=== PATIENT | male | born 1950 | race Caucasian/White ===

== ENCOUNTER 2025-05-29 18:58 | Emergency (ER) | payer MEDICARE, SELFPAY ==
[2025-05-29 18:59] VITALS: BMI 26.4
[2025-05-29 19:11] VITALS: BP 165/77; PULSE 68; RESP 18; TEMP 36.9; O2SAT 99
--- NOTE | 2025-05-29 19:17 | XR_ITS ---
Examination: CT chest, without intravenous contrast. CT abdomen, without intravenous contrast. CT pelvis, without intravenous contrast. 2-D sagittal and coronal reconstructions. 3-D reconstructions. Date and time of exam:May 29, 2025, 1939 hours INDICATIONS: Ground-level fall today with injury to the chest and abdomen, chest pain abdomen pain CTDI vol (mgy) 7.74 DLP (MGycm)653 Technique: Multiple CT images, 3.0 mm slice thickness, obtained chest, abdomen, pelvis, with the high-resolution 64 slice scanner.. Sagittal and coronal 2-D reconstructions are obtained. 3-D reconstructions Low dose protocols were performed. One or more of the following dose reduction techniques were used; automated exposure control, adjustment of the mA and/or KV according to patient size, use of iterative reconstruction technique. Findings: 29 mm calcified left thyroid nodule Thoracic aorta pulmonary arteries appear intact on this noncontrast study Heavy calcification left anterior descending coronary artery. No hemopericardium. No pneumothorax pulmonary contusion or hemothorax The manubrium, the body sternum intact No thoracic or lumbar or sacral fracture depicted Ribs appear intact 12 mm liver cyst. No focal liver splenic or renal laceration 3.7 cm lateral right renal cyst Abdominal aorta intact, no free blood in the abdomen Negative for pneumoperitoneum Abundant stool in the rectosigmoid Urinary bladder intact Bones of the pelvis including anterior rami and hips appear intact IMPRESSION: 29 mm calcified left thyroid nodule. Thoracic aorta pulmonary arteries intact No pneumothorax, pulmonary contusion or hemothorax. No abdominal parenchymal laceration. Abdominal aorta intact No free blood in the abdomen or pelvis. Osseous structures appear intact
--- NOTE | 2025-05-29 19:17 | XR_ITS ---
Examination: CT brain head without contrast. 2-D sagittal coronal reconstructions Date and time of exam:July 29, 2025 1933 hours INDICATIONS: Round level fall today with into the head, head pain CTDI: vol (mGy):50.7 DLP: (mGycm):1093 Technique: Multiple CT axial sections of the brain have been obtained, 5 mm slice thickness. Contrast has not been administered. 2-D sagittal, coronal reconstructions have been obtained Low dose protocols were performed. One or more of the following dose reduction techniques were used; automated exposure control, adjustment of the mA and/or KV according to patient size, use of iterative reconstruction technique. Findings: No significant ventricular enlargement. Intra-axial or extra-axial hemorrhage density is not seen. No mass effect or midline shift Basal cisterns are not remarkable. Fourth ventricle is midline. Cranial vault intact. Impression: Negative for acute hemorrhage, mass effect or midline shift
--- NOTE | 2025-05-29 19:17 | XR_ITS ---
Examination: CT cervical spine without contrast 2-D sagittal reconstructions 2-D coronal reconstructions 3-D reconstructions. Exam date and time:May 29, 2025, 1933 hours INDICATIONS: Ground-level fall today with injury to the neck, neck pain CTDI:vol (mGy) 14.9 DLP: (mGycm) 369 Technique: Multiple 2 mm axial sections of the cervical spine have been obtained. The coronal and sagittal reconstructions have been obtained. 3-D reconstructions have been obtained. Low dose protocols were performed. One or more of the following dose reduction techniques were used; automated exposure control, adjustment of the mA and/or KV according to patient size, use of iterative reconstruction technique. Findings: Axial sections demonstrate intact base of the skull. C1 exhibit satisfactory relationship to the odontoid. No acute cervical vertebral body fracture seen. Alignment posterior spinous processes satisfactory. Impression: No acute cervical fracture.
--- NOTE | 2025-05-29 19:18 | EDRME_ITS ---
Rapid Medical Screening Exam COUNT INCLUDES THE [facility] Arrival date/time: 05/29/25 18:58 74M on Plavix and Eliquis presents to ED with evaluation after patient tripped and fell backward and hit his head and back. Patient denies LOC and dizziness. Chief Complaint: Head Injury Vital signs: Vital Signs Temperature 98.4 F 05/29/25 19:11 Pulse Rate 68 05/29/25 19:11 Respiratory Rate 18 05/29/25 19:11 Blood Pressure 165/77 H 05/29/25 19:11 Pulse Oximetry (%) 99 05/29/25 19:11 Oxygen Delivery Method Room Air 05/29/25 19:11
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
[2025-05-29 21:22] VITALS: BP 145/71; PULSE 59; RESP 16; TEMP 36.6; O2SAT 97
== END 2025-05-29 21:26 | disposition home or self-care (01) ==
PROVIDERS: Emergency Provider Emergency Medicine
DX: S00.01XA Abrasion of scalp, initial encounter (principal); S19.9XXA Unspecified injury of neck, initial encounter; S29.9XXA Unspecified injury of thorax, initial encounter; W01.198A Fall on same level from slipping, tripping and stumbling with subsequent striking against other object, initial encounter
CPT/HCPCS: 70450; 71250; 72125; 74176; 99284